=== PATIENT | male | born 1995 | race Caucasian/White ===

== ENCOUNTER 2022-05-10 16:02 | Emergency (ER) | payer OTHER ==
[~2022-05-10] VITALS: Ht 193 cm; Wt 88.5 kg
== END 2022-05-10 17:37 | disposition home or self-care (01) ==
LOC: ER 16:02
DX: S01.511A Laceration without foreign body of lip, initial encounter (principal); X58.XXXA Exposure to other specified factors, initial encounter; Y93.9 Activity, unspecified; Y92.9 Unspecified place or not applicable; Y99.9 Unspecified external cause status